=== PATIENT | female | born 1990 ===

== ENCOUNTER 2017-06-29 15:23 | Inpatient (IN) | payer MEDICAID ==
[~2017-06-29] VITALS: Ht 160 cm; Wt 113.4 kg
--- NOTE | ~2017-06-29 | OP ---
PATIENT NAME: MAIA LOPEZ MEDICAL RECORD: [id number] :89 LOCATION:[id number] ADMISSION DATE:06/29/17 SURGEON: SULEMA POPE MD DATE OF OPERATION: 07/02/2017 PREOPERATIVE DIAGNOSES: Symptomatic gallstones, gallstone pancreatitis, hepatomegaly, and elevated liver function tests. POSTOPERATIVE DIAGNOSES: Symptomatic gallstones, gallstone pancreatitis, hepatomegaly, and elevated liver function tests. PROCEDURES: 1. Laparoscopic cholecystectomy. 2. Intraoperative cholangiography without immediate surgeon interpretation. 3. 14-gauge core needle liver biopsy. SURGEON: Sulema Pope MD CHILD PSYCHOMETRIST: None. BLOOD LOSS: Minimal. ANESTHESIA: General. COMPLICATIONS: None. The indication for liver biopsy was hepatomegaly as well as elevated liver function tests. DESCRIPTION OF THE PROCEDURE: The patient was conveyed to the operating room electively on 07/02/2017. General anesthesia was induced by the anesthesia staff. The abdomen was sterilely prepped and draped. A small skin lalo was accomplished in the left upper quadrant. A Veress needle was inserted through the skin lalo into the peritoneal cavity. CO2 insufflation was begun. Once a sufficient pneumoperitoneum had been achieved, a 5-mm trocar was inserted through an incision in the right upper quadrant. Under direct internal vision utilizing a television camera, a 12-mm trocar was inserted through an incision at the umbilicus. Two more trocars were inserted. A 5-mm trocar was inserted in the epigastrium. Another 5-mm trocar was inserted far laterally in the right upper quadrant. During insertion of the Veress needle and all trocars, there appeared to have been no injury to the bowels, any intraperitoneal or retroperitoneal structures. The indication for the liver biopsy was hepatomegaly. Under laparoscopic guidance, I percutaneously accessed the right upper quadrant utilizing a 14-gauge core needle liver biopsy device. Cores were obtained over the convexity of the liver. The biopsy sites were made hemostatic with electrocautery. I then advanced the cholangiogram trocar. I punctured the fundus of the gallbladder. I aspirated bile. I then injected dye. Static fluoroscopic images were obtained. These cholangiographic images are sent to the radiologist for interpretation. I withdrew the cholangiogram trocar. The gallbladder was grasped and retracted cephalad. The infundibulum was grasped and retracted laterally. Critical view of the triangle of Calot was visualized. Blunt dissection was begun on the OPERATIVE REPORT [id number] MAIA LOPEZ triangle of Calot. One cystic artery and one cystic duct were identified. These were clipped multiply and divided between clips. The gallbladder was then excised from its bed and the liver. It was placed within an Endobag retrieval device and was withdrawn through the umbilical fascia defect. The 12-mm trocars were placed and the abdomen reinsufflated. I irrigated and aspirated in the right upper quadrant. There was no bleeding even at low pressure of 8. The Star-Nitesh suture closure device and 0 Vicryl sutures were used to close the umbilical fascia. All the trocars were removed and the abdomen desufflated. The incision at the umbilicus was closed with interrupted 4-0 Vicryl Rapide sutures. The other skin incisions were closed with interrupted intracuticular 3-0 Vicryls. Benzoin and Steri-Strips were applied. The patient was then extubated and conveyed to post-anesthesia care unit where she was in stable condition. TRANSINT:[id number] Voice Confirmation ID: [id number] DOCUMENT ID: [id number] SULEMA POPE MD at 1227 CC: [id number] DICTATION DATE: 07/02/17 1014 FRAME STRAIGHTENER: 07/02/17 1446 DIS IN 07/02/17 [facility] [address] [place] [address]
[2017-06-29 15:38] VITALS: BP 107/66; BMI 44.3
[2017-06-29 15:39] VITALS: BP 107/66
[2017-06-29 19:12] LABS: HEMATOCRIT 33.1 % (36.0-48.0); HEMOGLOBIN 10.2 g/dL (12-16); MCH 23.6 pg (26.0-34.0); MCHC 30.8 g/dL (31.0-37.0); MCV 76.4 fL (80.0-100.0); MEAN PLATELET VOLUME 9.2 fL (7.4-10.4); PLATELET COUNT 360 10x3/uL (130-400); RBC 4.33 10x6/uL (4.00-5.40); RDW 17.7 % (11.5-14.5); WBC 6.7 10x3/uL (4.8-10.8)
[2017-06-29 19:21] LABS: APTT 27.8 SECONDS (22.8-39.4); INR 1.03 (0.85-1.17); PROTIME 13.1 SECONDS (11.6-15.0)
[2017-06-29 19:31] LABS: ALBUMIN 2.8 g/dL (3.4-5.0); ALKALINE PHOSPHATASE 467 U/L (46-116); ALT (SGPT) 653 U/L (10-68); CALC OSMOLALITY 280 mosm/kg (275-300); CALCIUM 8.5 mg/dL (8.5-10.1); CHLORIDE - SERUM 107 mmol/L (98-107); CREATININE - SERUM 0.7 mg/dL (0.6-1.3); GLUCOSE 92 mg/dL (74-106); POTASSIUM - SERUM 3.8 mmol/L (3.5-5.1); PROTEIN - SERUM 6.7 g/dL (6.4-8.2); SODIUM 142 mmol/L (136-145); UREA NITROGEN 8 mg/dL (7-18); eGFR NON AFRICAN AMERICAN > 90 mL/min (90-120)
[2017-06-29 19:38] LABS: LIPASE 2897 U/L (73-393)
[2017-06-29 20:00] VITALS: BP 97/62
[2017-06-29 20:22] LABS: EOSINOPHILS 3 % (0-7); LYMPHOCYTES 33 % (15-50); NEUTROPHILS 64 % (40-80); PLATELET ESTIMATE NORMAL
[2017-06-29 20:24] LABS: ROULEAUX OCC
[2017-06-30 04:00] VITALS: BP 106/61
[2017-06-30 05:20] LABS: BASOPHILS 0.1 % (0-2); EOSINOPHILS 6.7 % (0-7); HEMATOCRIT 31.5 % (36.0-48.0); HEMOGLOBIN 9.8 g/dL (12-16); IMMATURE GRANULOCYTES 0.3 % (0-5); LYMPHOCYTES 31.7 % (15-50); MCH 23.8 pg (26.0-34.0); MCHC 31.1 g/dL (31.0-37.0); MCV 76.5 fL (80.0-100.0); MONOCYTES 7.2 % (2-11); PLATELET COUNT 313 10x3/uL (130-400); RBC 4.12 10x6/uL (4.00-5.40); WBC 7.7 10x3/uL (4.8-10.8)
[2017-06-30 05:38] LABS: ALBUMIN 2.6 g/dL (3.4-5.0); ALKALINE PHOSPHATASE 397 U/L (46-116); CALC OSMOLALITY 277 mosm/kg (275-300); CALCIUM 8.3 mg/dL (8.5-10.1); CARBON DIOXIDE 28.3 mmol/L (21.0-32.0); CHLORIDE - SERUM 106 mmol/L (98-107); CHOL - HDL RATIO 6.8 ratio (2.3-4.1); CHOLESTEROL, TOTAL 170 mg/dL (0-200); CREATININE - SERUM 0.8 mg/dL (0.6-1.3); GLUCOSE 96 mg/dL (74-106); HDL CHOLESTEROL 25 mg/dL (32-96); LDL CHOLESTEROL 109 mg/dL (0-100); LDL-HDL RATIO 4.4 ratio (1.5-3.5); LIPASE 1166 U/L (73-393); POTASSIUM - SERUM 3.7 mmol/L (3.5-5.1); PROTEIN - SERUM 6.3 g/dL (6.4-8.2); SODIUM 140 mmol/L (136-145); TRIGLYCERIDE 183 mg/dL (30-200); UREA NITROGEN 9 mg/dL (7-18); eGFR NON AFRICAN AMERICAN > 90 mL/min (90-120)
[2017-06-30 05:43] LABS: ALT (SGPT) 474 U/L (10-68); AMYLASE - SERUM 388 U/L (25-115)
[2017-06-30 08:10] VITALS: BP 117/68
[2017-06-30 12:40] VITALS: BP 106/50
[2017-06-30 14:03] LABS: % SATURATION 12 % (15-55); IRON 36 ug/dl (35-150); TOTAL IRON BIND CAPACITY 294 ug/dl (260-445); UNSAT IRON BIND CAPACITY 258 ug/dl (150-375)
[2017-06-30 15:59] VITALS: BP 110/72
[2017-06-30 20:00] VITALS: BP 95/62
[2017-07-01 04:00] VITALS: BP 130/78
[2017-07-01 04:57] LABS: BASOPHILS 0.2 % (0-2); EOSINOPHILS 7.1 % (0-7); HEMATOCRIT 31.1 % (36.0-48.0); HEMOGLOBIN 9.4 g/dL (12-16); IMMATURE GRANULOCYTES 0.2 % (0-5); LYMPHOCYTES 37.2 % (15-50); MCH 23.2 pg (26.0-34.0); MCHC 30.2 g/dL (31.0-37.0); MCV 76.6 fL (80.0-100.0); MEAN PLATELET VOLUME 9.1 fL (7.4-10.4); MONOCYTES 7.7 % (2-11); NEUTROPHILS 47.6 % (40-80); PLATELET COUNT 328 10x3/uL (130-400); RBC 4.06 10x6/uL (4.00-5.40); RDW 17.8 % (11.5-14.5); WBC 8.1 10x3/uL (4.8-10.8)
[2017-07-01 05:07] LABS: ALBUMIN 2.4 g/dL (3.4-5.0); ALKALINE PHOSPHATASE 298 U/L (46-116); BILIRUBIN - TOTAL 0.14 mg/dL (0.2-1.3); CALCIUM 8.2 mg/dL (8.5-10.1); CARBON DIOXIDE 27.5 mmol/L (21.0-32.0); CHLORIDE - SERUM 107 mmol/L (98-107); CREATININE - SERUM 0.8 mg/dL (0.6-1.3); GLUCOSE 97 mg/dL (74-106); LIPASE 523 U/L (73-393); POTASSIUM - SERUM 3.7 mmol/L (3.5-5.1); PROTEIN - SERUM 6.2 g/dL (6.4-8.2); SODIUM 140 mmol/L (136-145); eGFR NON AFRICAN AMERICAN > 90 mL/min (90-120)
[2017-07-01 05:12] LABS: ALT (SGPT) 265 U/L (10-68); CALC OSMOLALITY 278 mosm/kg (275-300); UREA NITROGEN 12 mg/dL (7-18)
[2017-07-01 06:14] LABS: FOLATE (FOLIC ACID) - SERUM 10.3 ng/mL (>3.0)
[2017-07-01 09:53] VITALS: BP 114/70
[2017-07-01 14:12] VITALS: BP 119/68
[2017-07-01 17:58] VITALS: BP 109/59
[2017-07-01 18:54] LABS: APPEARANCE HAZY (CLEAR); BILIRUBIN NEGATIVE (NEGATIVE); COLOR STRAW (YELLOW); GLUCOSE NEGATIVE (NEGATIVE); KETONE NEGATIVE (NEGATIVE); NITRITE NEGATIVE (NEGATIVE); PROTEIN NEGATIVE (NEGATIVE); SPECIFIC GRAVITY 1.015 (1.005-1.020); UROBILINOGEN NORMAL (NORMAL)
[2017-07-01 18:57] LABS: BACTERIA FEW /hpf (NONE SEEN); RED CELLS - URINE OCC /hpf (0-5)
[2017-07-01 19:16] LABS: UDS - AMPHET NEGATIVE QUAL (NEGATIVE); UDS - BARB NEGATIVE QUAL (NEGATIVE); UDS - BENZO NEGATIVE QUAL (NEGATIVE); UDS - COCAINE NEGATIVE QUAL (NEGATIVE); UDS - OPIATE POSITIVE QUAL (NEGATIVE); UDS - PCP NEGATIVE QUAL (NEGATIVE); UDS - THC NEGATIVE QUAL (NEGATIVE)
[2017-07-01 20:04] VITALS: Ht 160 cm; Wt 113.4 kg
[2017-07-01 21:15] VITALS: BP 102/64
[2017-07-02] VITALS (9 sets, daily range): BP systolic 95–160; BP diastolic 51–110
[2017-07-02 07:43] LABS: ALBUMIN 2.7 g/dL (3.4-5.0); ALKALINE PHOSPHATASE 246 U/L (46-116); BILIRUBIN - TOTAL 0.17 mg/dL (0.2-1.3); CALC OSMOLALITY 278 mosm/kg (275-300); CALCIUM 8.5 mg/dL (8.5-10.1); CHLORIDE - SERUM 106 mmol/L (98-107); CREATININE - SERUM 0.7 mg/dL (0.6-1.3); GLUCOSE 101 mg/dL (74-106); LIPASE 205 U/L (73-393); PROTEIN - SERUM 6.3 g/dL (6.4-8.2); SODIUM 140 mmol/L (136-145); UREA NITROGEN 13 mg/dL (7-18); eGFR NON AFRICAN AMERICAN > 90 mL/min (90-120)
[2017-07-02 07:44] LABS: ALT (SGPT) 180 U/L (10-68); POTASSIUM - SERUM 4.4 mmol/L (3.5-5.1)
[2017-07-02 07:47] LABS: BASOPHILS 0.4 % (0-2); EOSINOPHILS 7.7 % (0-7); HEMOGLOBIN 9.6 g/dL (12-16); IMMATURE GRANULOCYTES 0.3 % (0-5); LYMPHOCYTES 27.8 % (15-50); MCH 23.5 pg (26.0-34.0); MCV 75.8 fL (80.0-100.0); MEAN PLATELET VOLUME 9.6 fL (7.4-10.4); MONOCYTES 8.7 % (2-11); NEUTROPHILS 55.1 % (40-80); PLATELET COUNT 330 10x3/uL (130-400); RBC 4.09 10x6/uL (4.00-5.40); RDW 17.8 % (11.5-14.5); WBC 7.6 10x3/uL (4.8-10.8)
[2017-07-02 08:47] LABS: HCG SERUM NEGATIVE (NEGATIVE)
[2017-07-02] MEDS ORDERED: HYDROCODON-ACE1 EAC7 PO (16:57)
== END 2017-07-02 18:00 | disposition home or self-care (01) | DRG 769 ==
LOC: D.M2 15:23 → D.MS 15:24
PROVIDERS: Anesthesiology; Internal Medicine Nephrology; Surgery
PROC: 0FB03ZX Excision of Liver, Percutaneous Approach, Diagnostic (ICD-10-PCS; 2017-07-02)
PROC: 0FT44ZZ Resection of Gallbladder, Percutaneous Endoscopic Approach (ICD-10-PCS; principal; 2017-07-02 10:00)
PROC: BF121ZZ Fluoroscopy of Gallbladder using Low Osmolar Contrast (ICD-10-PCS; 2017-07-02 10:00)
DX: O26.63 Liver and biliary tract disorders in the puerperium (principal); K85.10 Biliary acute pancreatitis without necrosis or infection; F17.213 Nicotine dependence, cigarettes, with withdrawal; O99.335 Smoking (tobacco) complicating the puerperium; R19.7 Diarrhea, unspecified